=== PATIENT | male | born 1990 | race Caucasian/White ===

== ENCOUNTER 2020-01-26 21:48 | Emergency (ER) | payer SELFPAY ==
[2020-01-26 23:50] LABS: Absolute Lymphocytes (CBC) 1.6 K/uL (0.7-4.9); Basophils % 0.2 % (0-1.3); Hematocrit 47.5 % (39.6-49.0); Lymphocytes % 9.5 % (15.3-44.8); MPV 7.7 fL (7.6-11.3); RBC Red Blood Cell Count 5.42 M/uL (4.33-5.43)
[2020-01-26] MEDS ORDERED: ONDANSETRON 4 MG/2 ML VIAL ONE (23:54)
[2020-01-26] MEDS ORDERED: MAGNE/ALUM HYDROXD 30 ML UCUP ONE (23:54)
[2020-01-26] MEDS ORDERED: LIDOCAINE VISCOUS 2% SOLN 15 ML UDC ONE (23:54)
[2020-01-26] MEDS ORDERED: NA CHLORIDE 0.9% 1,000 ML ONE (23:54)
[2020-01-26] MEDS ORDERED: PANTOPRAZOLE 40 MG INJ ONE (23:54)
[2020-01-27 00:02] LABS: Albumin 4.4 g/dL (3.4-5.0); Bilirubin Direct 0.1 mg/dL (0-0.2); Bilirubin Total 0.7 mg/dL (0.2-1.0); Potassium 3.5 mmol/L (3.5-5.1); Protein, Total 8.4 g/dL (6.4-8.2)
--- NOTE | 2020-01-27 01:26 | ER ---
Nurse's Notes [facility] Name: Gray Gallegos Age: 29 yrs Sex: Male : 1990 Arrival Date: 01/26/2020 Time: 22:03 Bed 20 Private MD: Diagnosis: Dysphagia. 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 About every 2-3 months this symptoms happen, I could not get anything down and I keep throwing up, It usually just goes away after 2-3 hours. But this time, I have been vomiting since 1100 this morning. I am now vomiting bloody mucous every 20 minutes". Denies abdominal pain and diarrhea. Coronavirus screen: Proceed with normal triage. Patient denies a cough. Patient denies shortness of breath or difficulty breathing. Patient denies measured and/or subjective temperature greater than 100.4F prior to today's visit. Patient denies travel on a cruise ship or to a country the [facility] currently lists as an affected area. Patient denies contact with known and/or suspected case of COVID-19. Ebola Screen: Patient negative for fever greater than or equal to 101.5 degrees Fahrenheit, and additional compatible Ebola Virus Disease symptoms Patient denies exposure to infectious person. Patient denies travel to an Ebola-affected area in the 21 days before illness onset. No symptoms or risks identified at this time. Initial Sepsis Screen: Does the patient meet any 2 criteria? No. Patient's initial sepsis screen is negative. Does the patient have a suspected source of infection? No. Patient's initial sepsis screen is negative. Risk Assessment: Do you want to hurt yourself or someone else? Patient reports no desire to harm self or others. Onset of symptoms was January 26, 2020 at 11:00. 22:08 Method Of Arrival: Ambulatory ca1 22:08 Acuity: ANAYELI 3 ca1 Triage Assessment: 01/26 01:36 General: Appears in no apparent distress. Behavior is calm, cooperative, appropriate ao for age. Pain: Denies pain. GI: No deficits noted. Reports nausea. Historical: - Allergies: 01/25 22:13 No Known Allergies; ca1 - Home Meds: 22:13 None [Active]; ca1 - PMHx: 22:13 None; ca1 - PSHx: 22:13 Hernia repair; ca1 - Immunization history:: Adult Immunizations up to date. - Social history:: Smoking status: Patient denies any tobacco usage or history of. Screenin/05 01:36 Abuse screen: Denies threats or abuse. Denies injuries from another. Nutritional ao screening: No deficits noted. Tuberculosis screening: No symptoms or risk factors identified. Fall Risk None identified. Assessment: 01/25 23:02 General: Appears in no apparent distress. comfortable, Behavior is calm, cooperative. ls4 Pain: Denies pain. Neuro: Level of Consciousness is awake, alert, obeys commands. Cardiovascular: Capillary refill < 3 seconds Patient's skin is warm and dry. Respiratory: Airway is patent Respiratory effort is even, unlabored, Respiratory pattern is regular. GI: Abdomen is flat, non-distended, Bowel sounds present X 4 quads. Abd is soft and non tender X 4 quads. Reports vomiting, Pt states he has a problem with his esophagus and will have this issue every few months and then he feels fine but this evening the vomiting lasted longer than usual. : No deficits noted. No signs and/or symptoms were reported regarding the genitourinary system. Derm: Skin is intact, is healthy with good turgor, Skin is dry, Skin is pink, warm \\T\\ dry. 01/26 01:37 GI: Abdomen is non-distended. ao 01:37 Reassessment: DC given to patient patient agree with POC and to follow up with PCP. No ao question at this time. Vital Signs: 01/25 22:08 BP 143 / 91; Pulse 84; Resp 16 S; Temp 98.5(O); Pulse Ox 99% on R/A; Weight 86.18 kg ca1 (R); Height 5 ft. 10 in. (177.80 cm) (R); 22:08 Body Mass Index 27.26 (86.18 kg, 177.80 cm) ca1 ED Course: 22:03 Patient arrived in ED. ds1 22:12 Triage completed. ca1 22:13 Arm band placed on right wrist. ca1 23:10 Irlanda Perrin, RN is Primary Nurse. ls4 23:11 Patrice Parsons MD is Attending Physician. pkl 23:56 XRAY Abdomen Acute Series Sent. ls4 01/26 00:43 Report given to Gautam. ls4 00:50 XRAY Abdomen Acute Series In Process Unspecified. EDMS 01:25 Rashad Mcnair MD is Referral Physician. pkl 01:36 No provider procedures requiring assistance completed. IV discontinued, intact, ao bleeding controlled, No redness/swelling at site. Pressure dressing applied. 01:37 Patient has correct armband on for positive identification. ao Administered Medications: 01/25 23:56 Drug: Zofran (Ondansetron) 4 mg Route: IVP; Site: left antecubital; ls4 01/26 00:12 Follow up: Response: No adverse reaction ls4 01/25 23:56 Drug: ProTONIX 40 mg Route: IVP; Site: left antecubital; ls4 01/26 00:12 Follow up: Response: No adverse reaction ls4 01/25 23:56 Drug: GI Cocktail without - (Maalox Suspension 30 ml, Lidocaine Liquid 2 % 15 ls4 ml) Route: PO; 01/26 00:12 Follow up: Response: No adverse reaction ls4 01/25 23:57 Drug: NS 0.9% 1000 ml Route: IV; Rate: 1000 ml; Site: left antecubital; ls4 01/26 01:01 Follow up: IV Status: Completed infusion; IV Intake: 1000ml ls4 Intake: 01:01 IV: 1000ml; Total: 1000ml. ls4 Outcome: 01:26 Discharge ordered by . pkl 01:37 Discharged to home ambulatory. ao 01:37 Condition: stable 01:37 Discharge instructions given to patient, Instructed on discharge instructions, follow up and referral plans. Demonstrated understanding of instructions, follow-up care, medications, Prescriptions given X 2. 01:38 Patient left the ED. ao Signatures: Dispatcher [employer] EDMS Patrice Parsons MD MD pkAnnabel Samayoa ds1 Gautam Haynes RN RN Irlanda Hurley RN RN ls4 Nina Pillai RN RN ca1 Corrections: (The following items were deleted from the chart) 13:29 13:28 Response: No adverse reaction ls4 ls4
--- NOTE | 2020-01-27 01:27 | EDPHYS ---
Physician Documentation [facility] Name: Gray Gallegos Age: 29 yrs Sex: Male : 1990 Arrival Date: 01/26/2020 Time: 22:03 Bed 20 Private MD: ED Physician Patrice Parsons HPI: 01/25 23:18 This 29 yrs old Male presents to ER via Ambulatory with complaints of Vomiting. pkl 23:18 The patient presents to the emergency department with vomiting. Onset: The pkl symptoms/episode began/occurred this morning. Possible causes: narrow esophagus. Associated signs and symptoms: The patient has no apparent associated signs or symptoms. The patient has experienced similar episodes in the past, several times. Historical: - Allergies: 22:13 No Known Allergies; ca1 - Home Meds: 22:13 None [Active]; ca1 - PMHx: 22:13 None; ca1 - PSHx: 22:13 Hernia repair; ca1 - Immunization history:: Adult Immunizations up to date. - Social history:: Smoking status: Patient denies any tobacco usage or history of. ROS: 23:18 Eyes: Negative for injury, pain, redness, and discharge, ENT: Negative for injury, pkl pain, and discharge, Neck: Negative for injury, pain, and swelling, Cardiovascular: Negative for chest pain, palpitations, and edema, Respiratory: Negative for shortness of breath, cough, wheezing, and pleuritic chest pain. 23:18 Abdomen/GI: Positive for vomiting. 23:18 Back: Negative for acute changes. 23:18 : Negative for urinary symptoms. 23:18 MS/extremity: Negative for acute changes. 23:18 Skin: Negative for rash. 23:18 Neuro: Negative for altered mental status. Exam: 23:18 Head/Face: Normocephalic, atraumatic. Eyes: Pupils equal round and reactive to light, pkl extra-ocular motions intact. Lids and lashes normal. Conjunctiva and sclera are non-icteric and not injected. Cornea within normal limits. Periorbital areas with no swelling, redness, or edema. ENT: Nares patent. No nasal discharge, no septal abnormalities noted. Tympanic membranes are normal and external auditory canals are clear. Oropharynx with no redness, swelling, or masses, exudates, or evidence of obstruction, uvula midline. Mucous membranes moist. Neck: Trachea midline, no thyromegaly or masses palpated, and no cervical lymphadenopathy. Supple, full range of motion without nuchal rigidity, or vertebral point tenderness. No Meningismus. Chest/axilla: Normal chest wall appearance and motion. Nontender with no deformity. No lesions are appreciated. Cardiovascular: Regular rate and rhythm with a normal S1 and S2. No gallops, murmurs, or rubs. Normal PMI, no JVD. No pulse deficits. Respiratory: Lungs have equal breath sounds bilaterally, clear to auscultation and percussion. No rales, rhonchi or wheezes noted. No increased work of breathing, no retractions or nasal flaring. Abdomen/GI: Soft, non-tender, with normal bowel sounds. No distension or tympany. No guarding or rebound. No evidence of tenderness throughout. Back: No spinal tenderness. No costovertebral tenderness. Full range of motion. Skin: Warm, dry with normal turgor. Normal color with no rashes, no lesions, and no evidence of cellulitis. MS/ Extremity: Pulses equal, no cyanosis. Neurovascular intact. Full, normal range of motion. Neuro: Awake and alert, GCS 15, oriented to person, place, time, and situation. Cranial nerves II-XII grossly intact. Motor strength 5/5 in all extremities. Sensory grossly intact. Cerebellar exam normal. Normal gait. Vital Signs: 22:08 BP 143 / 91; Pulse 84; Resp 16 S; Temp 98.5(O); Pulse Ox 99% on R/A; Weight 86.18 kg ca1 (R); Height 5 ft. 10 in. (177.80 cm) (R); 22:08 Body Mass Index 27.26 (86.18 kg, 177.80 cm) ca1 MDM: 23:11 Patient medically screened. [facility] 01/26 01:20 Data reviewed: vital signs, nurses notes, lab test result(s), radiologic studies, plain pkl films. 01:22 ED course: Patient feeling much better. Vomiting resolved. Advised to follow up with [facility] director of rooms next week. Patient understood instructions. 01/25 23:17 Order name: Basic Metabolic Panel; Complete Time: 01:18 pk 01/25 23:17 Order name: CBC with Diff; Complete Time: :18 pkl 01/25 23:17 Order name: Hepatic Function; Complete Time: 01:18 pkl 01/25 23:17 Order name: Lipase; Complete Time: 01:18 pkl 01/25 23:17 Order name: XRAY Abdomen Acute Series pkl 01/25 23:17 Order name: IV Saline Lock; Complete Time: 23:57 pkl 01/25 23:17 Order name: Labs collected and sent; Complete Time: 23:57 pkl Administered Medications: 01/25 23:56 Drug: Zofran (Ondansetron) 4 mg Route: IVP; Site: left antecubital; 4 01/26 00:12 Follow up: Response: No adverse reaction [facility] 01/25 23:56 Drug: ProTONIX 40 mg Route: IVP; Site: left antecubital; [facility] 01/26 00:12 Follow up: Response: No adverse reaction [facility] 01/25 23:56 Drug: GI Cocktail without - (Maalox Suspension 30 ml, Lidocaine Liquid 2 % 15 ls4 ml) Route: PO; 01/26 00:12 Follow up: Response: No adverse reaction [facility] 01/25 23:57 Drug: NS 0.9% 1000 ml Route: IV; Rate: 1000 ml; Site: left antecubital; 4 01/26 01:01 Follow up: IV Status: Completed infusion; IV Intake: 1000ml ls4 Disposition: 01/27/20 01:26 Discharged to Home. Impression: Dysphagia. Recurrent vomiting. - Condition is Stable. - Prescriptions for Protonix 40 mg Oral Tablet, Delayed Release (E.C.) - take 1 tablet by ORAL route once daily; 15 tablet. Zofran 4 mg Oral Tablet - take 1 tablet by ORAL route every 12 hours As needed; 6 tablet. - Medication Reconciliation Form, Thank You Letter, Antibiotic Education, Prescription Opioid Use form. - Follow up: Rashad Mcnair MD; When: 2 - 3 days; Reason: Re-evaluation by your physician. - Problem is new. - Symptoms have improved. Signatures: Dispatcher [employer] EDMS Patrice Parsons MD MD pkGautam Brock RN RN ao Stewart, Lisa, RN RN ls4 Nina Pillai RN RN ca1 Corrections: (The following items were deleted from the chart) 01:38 01:26 01/27/2020 01:26 Discharged to Home. Impression: Dysphagia. Recurrent vomiting. ao Condition is Stable. Forms are Medication Reconciliation Form, Thank You Letter, Antibiotic Education, Prescription Opioid Use. Follow up: Rashad Mcnair; When: 2 - 3 days; Reason: Re-evaluation by your physician. Problem is new. Symptoms have improved. pkl
[2020-01-27 01:43] VITALS: BP 143/91; TEMP 98.5; O2SAT 99
--- NOTE | 2020-01-27 08:29 | RAD REPORT ---
EXAM DESCRIPTION: RAD - Abdomen Acute Series - 01/27/2020 12:48 am CLINICAL HISTORY: Abdominal pain, nausea vomiting COMPARISON: None. FINDINGS: Lungs are clear. Heart size and vessels are normal. No pleural effusion, pneumothorax or o ther acute cardiopulmonary process seen. Bowel gas pattern is nonspecific. No bowel obstruction, free air or other acute findings. No suspicio us calcifications. No other suspicious for significant findings. IMPRESSION: Negative acute abdomen series.
== END 2020-01-27 01:38 | disposition home or self-care (01) ==
LOC: ER 21:48
DX: R11.10 Vomiting, unspecified (principal); R13.10 Dysphagia, unspecified
CPT/HCPCS: 36415; 74022; 80048; 80076; 83690; 85025; 96361; 96374; 96375; 99283; C9113; J2405; J7030

== ENCOUNTER 2021-10-30 23:36 | Emergency (ER) | payer BC ==
[2021-10-31] MEDS ORDERED: LORazepam 2 MG/ML VIAL ONE (00:36)
[2021-10-31] MEDS ORDERED: NA CHLORIDE 0.9% 1,000 ML ONE (00:36)
[2021-10-31 01:37] LABS: Protime INR 1.05
[2021-10-31 01:42] LABS: Absolute Lymphocytes (CBC) 1.7 K/uL (0.7-4.9); Hematocrit 38.8 % (39.6-49.0); Lymphocytes % 17.3 % (15.3-44.8); MPV 7.3 fL (7.6-11.3); RBC Red Blood Cell Count 4.32 M/uL (4.33-5.43)
[2021-10-31 01:53] LABS: Albumin 4.2 g/dL (3.4-5.0); Bilirubin Direct 0.1 mg/dL (0-0.2); Bilirubin Total 0.5 mg/dL (0.2-1.0); Potassium 3.5 mmol/L (3.5-5.1); Protein, Total 7.6 g/dL (6.4-8.2); Troponin High Sensitivity 5.8 pg/mL (<58.9)
[2021-10-31 02:38] LABS: Urine Blood Negative (Negative); Urine Glucose Negative (Negative); Urine Protein Negative (Negative)
--- NOTE | 2021-10-31 02:47 | EDPHYS ---
Physician Documentation [facility] Name: Gray Gallegos Age: 31 yrs Sex: Male : 1990 Arrival Date: 10/30/2021 Time: 23:40 Bed 19 Private MD: ED Physician Carlo Pfeiffer HPI: 10/31 00:29 This 31 yrs old Male presents to ER via Ambulatory with complaints of Anxiety, Fatigue. cp 00:29 The patient presents to the emergency department with anxiety. Onset: The cp symptoms/episode began/occurred last night. 00:29 Past psychiatric history: Prior diagnosis: no previous psychiatric diagnosis known, cp Psychiatric medications include: none. Associated signs and symptoms: Pertinent positives; fatigue, Pertinent negatives: chest pain, delusions, depression, fever, hallucinations, homicidal ideation, paranoia, substance abuse, suicide ideation. Patient presents to ED with c/o anxiety and difficulty sleeping tonight. Patient reports having blood drawn earlier today and after working out at gym last evening, went home and has been unable to rest and sleep. Historical: - Allergies: 10/30 23:50 No Known Allergies; tw5 - Home Meds: 23:50 None [Active]; tw5 - PMHx: 23:50 None; tw5 - PSHx: 23:50 None; tw5 - Immunization history:: Flu vaccine is not up to date. - Social history:: Smoking status: Patient denies any tobacco usage or history of. ROS: 10/31 00:35 Constitutional: Positive for fatigue, Negative for body aches, chills, fever. cp 00:35 Cardiovascular: Negative for chest pain, edema, palpitations. cp 00:35 Respiratory: Negative for cough, shortness of breath, wheezing. 00:35 Abdomen/GI: Negative for abdominal pain, vomiting, diarrhea, constipation. 00:35 Neuro: Negative for altered mental status, dizziness, headache, weakness. 00:35 Psych: Positive for anxiety. 00:35 All other systems are negative. Exam: 00:40 Constitutional: The patient appears in no acute distress, alert, awake, cp non-diaphoretic, non-toxic, well developed, well nourished, anxious. 00:40 Head/Face: Normocephalic, atraumatic. cp 00:40 Eyes: Periorbital structures: appear normal, Pupils: equal, round, and reactive to light and accomodation, Extraocular movements: intact throughout, Conjunctiva: normal, no exudate, no injection, Lids and lashes: appear normal, bilaterally. 00:40 ENT: External ear(s): are unremarkable, Nose: is normal, Mouth: Lips: moist, Oral mucosa: moist, Posterior pharynx: Airway: no evidence of obstruction, patent. 00:40 Chest/axilla: Inspection: normal. 00:40 Cardiovascular: Rate: normal, Rhythm: regular, Heart sounds: murmur, not appreciated, Edema: is not appreciated, JVD: is not appreciated. 00:40 Respiratory: the patient does not display signs of respiratory distress, Respirations: normal, no use of accessory muscles, no retractions, labored breathing, is not present, Breath sounds: are clear throughout, no decreased breath sounds, no stridor, no wheezing. 00:40 Abdomen/GI: Inspection: abdomen appears normal, Palpation: abdomen is soft and non-tender, in all quadrants. 00:40 Neuro: Orientation: to person, place \T\ time. Mentation: is normal, Motor: moves all fours, strength is normal, Sensation: is normal. 00:40 Psych: Behavior/mood is cooperative, anxious, Judgement / Insight is normal. Delusions/hallucinations are not present. 00:48 ECG was reviewed by the Attending Physician. cp Vital Signs: 10/30 23:48 BP 120 / 80; Pulse 75; Resp 18; Temp 97.8(O); Pulse Ox 100% on R/A; Weight 86.18 kg; tw5 Height 5 ft. 9 in. (175.26 cm); Pain 0/10; 23:54 BP 120 / 80; Pulse 73; Resp 16; Temp 97.2; Pulse Ox 100% on R/A; Weight 86.18 kg; masood Height 5 ft. 9 in. (175.26 cm); Pain 0/10; 10/31 02:52 BP 128 / 89; Pulse 85; Resp 17; Pulse Ox 100% on R/A; sm5 10/30 23:54 Body Mass Index 28.06 (86.18 kg, 175.26 cm) masood MDM: 10/30 23:53 Patient medically screened. cp 10/31 01:00 Differential diagnosis: drug withdrawal. depression, psychosis secondary to cp non-compliance, anxiety. 02:45 Data reviewed: vital signs, nurses notes, lab test result(s), EKG, and as a result, I cp will discharge patient. 02:45 Test interpretation: by ED physician or midlevel provider: ECG. Counseling: I had a cp detailed discussion with the patient and/or guardian regarding: the historical points, exam findings, and any diagnostic results supporting the discharge/admit diagnosis, lab results, to return to the emergency department if symptoms worsen or persist or if there are any questions or concerns that arise at home. Response to treatment: the patient's symptoms have markedly improved after treatment. 10/31 00:29 Order name: Basic Metabolic Panel; Complete Time: 02:01 cp 10/31 02:01 Interpretation: Normal except: GLUC 132; GFR 81. cp 10/31 00:29 Order name: CBC with Diff; Complete Time: 01:43 cp 10/31 01:43 Interpretation: Normal except: RBC 4.32; HCT 38.8; MPV 7.3; KOBI% 76.8. cp 10/31 00:29 Order name: LFT's; Complete Time: 02:01 cp 10/31 02:02 Interpretation: Reviewed. cp 10/31 00:29 Order name: Magnesium; Complete Time: 02:01 cp 10/31 02:02 Interpretation: Reviewed. cp 10/31 00:29 Order name: NT PRO-BNP; Complete Time: 02:01 cp 10/31 00:29 Order name: PT-INR; Complete Time: 01:43 cp 10/31 00:17 Order name: EKG; Complete Time: 00:18 cp 10/31 00:29 Order name: Troponin HS; Complete Time: 02:01 cp 10/31 00:29 Order name: XRAY Chest (1 view) cp 10/31 00:29 Order name: CK; Complete Time: 02:01 cp 10/31 00:29 Order name: UDS cp 10/31 02:38 Order name: Urine Dipstick-Ancillary EDMS 10/31 00:17 Order name: Orthostatics cp 10/31 00:17 Order name: EKG - Nurse/Tech; Complete Time: 00:45 cp 10/31 00:29 Order name: Cardiac monitoring; Complete Time: 00:31 cp 10/31 00:29 Order name: IV Saline Lock; Complete Time: 00:31 cp 03 00:29 Order name: Labs collected and sent; Complete Time: 00:38 cp 03 00:29 Order name: O2 Per Protocol; Complete Time: 00:31 cp 03 00:29 Order name: O2 Sat Monitoring; Complete Time: 00:31 cp 10/31 00:29 Order name: Urine Dipstick-Ancillary (obtain specimen); Complete Time: 02:47 cp EC:48 Rate is 70 beats/min. Rhythm is regular. AR interval is normal. QRS interval is cp prolonged at 126 msec. QT interval is normal. T waves are Inverted in lead aVR. Interpreted by me. Reviewed by me. Administered Medications: 00:36 Drug: Ativan (LORazepam) 1 mg Route: IVP; Site: right antecubital; 5 00:36 Drug: NS 0.9% 1000 ml Route: IV; Rate: 1 bolus; Site: right antecubital; [facility] Disposition: 06:43 Co-signature as Attending Physician, Carlo Pfeiffer MD. [email or web address] Disposition Summary: 10/31/21 02:46 Discharge Ordered Location: Home cp Problem: new cp Symptoms: have improved cp Condition: Stable cp Diagnosis - Anxiety disorder, unspecified cp Followup: cp - With: Private Physician - When: 1 - 2 days - Reason: Worsening of condition Discharge Instructions: - Discharge Summary Sheet cp - Panic Attack cp - Generalized Anxiety Disorder, Adult cp Forms: - Medication Reconciliation Form cp - Thank You Letter cp - Antibiotic Education cp - Prescription Opioid Use cp Signatures: Dispatcher [employer] EDMS Gaurav Wang PA PA cp Carlo Pfeiffer MD MD [address] [facility] Aura Bower, RN RN 5
--- NOTE | 2021-10-31 02:47 | ER ---
Nurse's Notes [facility] Name: Gray Gallegos Age: 31 yrs Sex: Male : 1990 Arrival Date: 10/30/2021 Time: 23:40 Bed 19 Private MD: Diagnosis: Anxiety disorder, unspecified Presentation: 10/30 23:48 Chief complaint: Patient states: "I had about 6 vials of blood taken earlier today tw5 around 1030 in the morning. I was feeling light headed afterwards, but I thought I would be fine. I did a really heavy workout around 1730 and since then I have started to feel even more light headed and anxious. I am not someone to get anxious but I feel like I am on the verge of a panic attack.". Coronavirus screen: Vaccine status: Patient reports being unvaccinated. Ebola Screen: Patient negative for fever greater than or equal to 101.5 degrees Fahrenheit, and additional compatible Ebola Virus Disease symptoms Patient denies exposure to infectious person. Patient denies travel to an Ebola-affected area in the 21 days before illness onset. Initial Sepsis Screen: Does the patient meet any 2 criteria? No. Patient's initial sepsis screen is negative. Does the patient have a suspected source of infection? No. Patient's initial sepsis screen is negative. Risk Assessment: Do you want to hurt yourself or someone else? Patient reports no desire to harm self or others. Onset of symptoms was October 30, 2021 at 17:30. 23:48 Method Of Arrival: Ambulatory tw5 23:48 Acuity: ANAYELI 4 tw5 Triage Assessment: 23:50 General: Appears in no apparent distress. Behavior is appropriate for age, anxious. tw5 Pain: Denies pain. Historical: - Allergies: 23:50 No Known Allergies; tw5 - Home Meds: 23:50 None [Active]; tw5 - PMHx: 23:50 None; tw5 - PSHx: 23:50 None; tw5 - Immunization history:: Flu vaccine is not up to date. - Social history:: Smoking status: Patient denies any tobacco usage or history of. Screenin:54 Abuse screen: Denies threats or abuse. Denies injuries from another. Nutritional masood screening: No deficits noted. Tuberculosis screening: No symptoms or risk factors identified. Fall Risk None identified. Assessment: 23:54 Reassessment: No changes from previously documented assessment. masood 10/31 02:53 Reassessment: No changes from previously documented assessment. Patient and/or family sm5 updated on plan of care and expected duration. Pain level reassessed. Vital Signs: 10/30 23:48 BP 120 / 80; Pulse 75; Resp 18; Temp 97.8(O); Pulse Ox 100% on R/A; Weight 86.18 kg; tw5 Height 5 ft. 9 in. (175.26 cm); Pain 0/10; 23:54 BP 120 / 80; Pulse 73; Resp 16; Temp 97.2; Pulse Ox 100% on R/A; Weight 86.18 kg; masood Height 5 ft. 9 in. (175.26 cm); Pain 0/10; 03 02:52 BP 128 / 89; Pulse 85; Resp 17; Pulse Ox 100% on R/A; sm5 10/30 23:54 Body Mass Index 28.06 (86.18 kg, 175.26 cm) masood ED Course: 10/30 23:40 Patient arrived in ED. jj6 23:44 Gaurav Wang PA is PHCP. cp 23:44 Carlo Pfeiffer MD is Attending Physician. cp 23:45 Tea Osei, RN is Primary Nurse. masood 23:50 Triage completed. tw5 23:50 Arm band placed on. tw5 23:54 Bed in low position. Call light in reach. masood 10/31 00:38 Basic Metabolic Panel Sent. sm5 00:38 CBC with Diff Sent. sm5 00:38 LFT's Sent. sm5 00:39 Magnesium Sent. sm5 00:39 NT PRO-BNP Sent. sm5 00:39 PT-INR Sent. sm5 00:39 Troponin HS Sent. sm5 00:39 CK Sent. sm5 00:52 XRAY Chest (1 view) In Process Unspecified. EDMS 02:47 UDS Sent. sm5 02:53 No provider procedures requiring assistance completed. IV discontinued, intact, sm5 bleeding controlled, No redness/swelling at site. Pressure dressing applied. Administered Medications: 00:36 Drug: Ativan (LORazepam) 1 mg Route: IVP; Site: right antecubital; sm5 00:36 Drug: NS 0.9% 1000 ml Route: IV; Rate: 1 bolus; Site: right antecubital; 5 Outcome: 02:46 Discharge ordered by . kamilla 02:53 Discharged to home ambulatory. [facility] 02:53 Condition: stable 02:53 Discharge instructions given to patient, Instructed on discharge instructions, follow up and referral plans. Demonstrated understanding of instructions, follow-up care. 02:53 Patient left the ED. 5 Signatures: Dispatcher [employer] EDMS Gaurav Wang PA PA cp Wood, Tiffany tw5 Asia Au jj6 Aura Bower RN RN 5 Tea Osei RN RN masood
[2021-10-31 03:23] VITALS: O2SAT 100
[2021-10-31 03:25] VITALS: TEMP 97.2
[2021-10-31 03:26] VITALS: BP 128/89
[2021-10-31 03:39] LABS: Barbiturates NEGATIVE (NEGATIVE); Benzodiazepines NEGATIVE (NEGATIVE); Cocaine NEGATIVE (NEGATIVE); METHAMPHETAM NEGATIVE (NEGATIVE); Methadone NEGATIVE (NEGATIVE); Opiates NEGATIVE (NEGATIVE); Phencyclidine NEGATIVE (NEGATIVE); THC Cannibis NEGATIVE (NEGATIVE)
--- NOTE | 2021-10-31 08:43 | RAD REPORT ---
EXAM DESCRIPTION: RAD - Chest Single View - 10/31/2021 12:52 am CLINICAL HISTORY: SOB Chest pain. COMPARISON: Chest Pa And Lat (2 Views) dated 04/12/2021; Abdomen Acute Series dated 01/26/2020 FINDINGS: Portable technique limits examination quality. The lungs are grossly clear. The heart is normal in size. No displaced fractures. IMPRESSION: No acute intrathoracic process suspected.
== END 2021-10-31 02:53 | disposition home or self-care (01) ==
LOC: ER 23:36
DX: F41.9 Anxiety disorder, unspecified (principal); R53.83 Other fatigue
CPT/HCPCS: 93005; 85025; 80048; 36415; 83735; 82550; 85610; 80076; 81003; 84484; 83880; 80307; 71045; 96374; 99283; J7030